=== PATIENT | male | born 1960 | race Caucasian/White ===

== ENCOUNTER 2016-09-15 17:14 | Emergency (ER) | payer BC, OTHER ==
[~2016-09-15] VITALS: Ht 177.8 cm; Wt 76.0 kg
[~2016-09-15 17:14] MED LIST: CLC100 PO; MTRUNK PO; OXYC-57 PO
[2016-09-15 17:18] VITALS: TEMP 37.2; Ht 177.8 cm; Wt 76.0 kg
[2016-09-15] MEDS ORDERED: SODIUM CHLORIDE 0.9% 500ML 500 ML IV STA (17:50)
[2016-09-15] MEDS ORDERED: KETOROLAC TROMETHAMINE 30 MG/ML VIAL IV STA (17:50)
--- NOTE | 2016-09-15 17:59 | EMERGENCY ROOM VISIT NOTE ---
History Report prepared by Michelet: Rossy Carranza Under the Supervision of: Dr. Enoc Cortes M.D. First contact with patient: 17:23 Chief Complaint: GROIN PAIN Stated Complaint: HAS HERNIA,COUGHING CAUSED MORE PAIN History of Present Illness The patient is a 56 year old male who presents to the Emergency Room with complaints of persistent right groin pain that began Friday. He currently rates his discomfort as an 8/10 in severity. The patient notes a history of three hernia repairs on his left groin, and 1 on the right. He notes a strange sensation with urination and increased right groin pain. The patient has seen his family doctor and there was concern for recurrence of a right-sided hernia, he has an appointment with surgery in a month or so. The patient describes his original pain as an achy pain, but states that now the pain radiates across his whole abdomen. The patient states that he recently developed a cough and cold, stating that his pain is worsened with coughing and movement. He states that he does heavy lifting daily. The patient notes chills and a post nasal drip with his recent cold. He additionally notes headache, diarrhea, and nausea today. The patient denies any chest pain, shortness of breath, vomiting, hematochezia, or melena. He denies any history of pneumonia. Source of History: patient Onset: Friday Position: other (right groin) Symptom Intensity: 8/10 Quality: ache, other (radiating) Timing: other (persistent) Modifying Factors (Worsening): movement, other (coughing) Associated Symptoms: + chills, + cough, + diarrhea, + headache, + nausea, No SOB, No chest pain, No hematochezia, No melena, No vomiting Note: Associated Symptoms: post nasal drip Review of Systems See HPI for pertinent positives & negatives. A total of 10 systems reviewed and were otherwise negative. Past Medical & Surgical Surgical Problems: (1) H/O hernia repair Family History Cancer Diabetes mellitus Hypertension Social History Smoking Status: Former Smoker Alcohol Use: occasionally Marital Status: Housing Status: lives with family Occupation Status: employed Current/Historical Medications Scheduled PRN Oxycodone Ir (Roxicodone Ir), 1-2 TAB PO Q4H PRN for Pain Allergies Coded Allergies: Gluten (Unverified Allergy, Unknown, unknown, 09/15/16) Physical Exam Vital Signs Date Time Temp Pulse Resp B/P Pulse Ox O2 Delivery O2 Flow Rate FiO2 09/15/16 17:18 37.2 97 18 144/101 96 Room Air Physical Exam GENERAL: Patient is in no acute distress. HEENT: No acute trauma, normocephalic atraumatic, mucous membranes moist, no nasal congestion, no scleral icterus. NECK: No stridor, no adenopathy, no meningismus, trachea is midline. LUNGS: Crackles at the left base, no wheezes, breath sounds are equal, no respiratory distress. HEART: Without murmurs gallops or rubs, regular rate and rhythm. ABDOMEN: Soft, nontender, bowel sounds positive, no hernias, no peritonitis. GROIN: Circumcised, normal testicles, nontender testicles, no hernia on the left , I cannot appreciate a hernia with straining on the right. There is a subtle fullness/firmness in the right inguinal region of unknown significance, no real tenderness. EXTREMITIES: No cyanosis or edema, full range of motion of all the joints without pain or difficulty, no signs for acute trauma. NEUROLOGIC: Oriented x 3, no acute motor or sensory deficits, no focal weakness. SKIN: No rash, no jaundice, no diaphoresis. Medical Decision & Procedures ER Provider Diagnostic Interpretation: X ray results and stated below per my interpretation and radiologist interpretation. Other radiology results and stated below per my review and radiologist interpretation: CHEST 2 VIEWS ROUTINE CLINICAL HISTORY: cough dyspnea COMPARISON STUDY: No previous studies for comparison. FINDINGS: The bones soft tissues and hemidiaphragms are normal. The cardiomediastinal silhouette is normal. The lungs are clear. The pulmonary vasculature is normal. IMPRESSION: Negative chest. Electronically signed by: Robert Thompson M.D. 09/15/2016 6:59 PM Dictated Date/Time: 09/15/2016 6:59 PM ABDOMINAL ULTRASOUND, RIGHT UPPER QUADRANT HISTORY: Right groin pain right groin--h/o previous surgery. COMPARISON: None. FINDINGS: Pre and post Valsalva evaluation over the right inguinal and groin region shows a potential very small fat-containing reducible inguinal hernia. There is no evidence of bowel containment or incarceration. IMPRESSION: Possible very small reducible fat-containing right inguinal hernia. No evidence of bowel containment or incarceration Electronically signed by: Robert Thompson M.D. 09/15/2016 7:04 PM Dictated Date/Time: 09/15/2016 7:03 PM Laboratory Results 09/15/16 18:05 Red Blood Count 5.45, Mean Corpuscular Volume 89.9, Mean Corpuscular Hemoglobin 31.7, Mean Corpuscular Hemoglobin Concent 35.3, Mean Platelet Volume 9.3, Neutrophils (%) (Auto) 66.9, Lymphocytes (%) (Auto) 13.3, Monocytes (%) (Auto) 19.0, Eosinophils (%) (Auto) 0.2, Basophils (%) (Auto) 0.2, Neutrophils # (Auto ) 3.56, Lymphocytes # (Auto) 0.71, Monocytes # (Auto) 1.01, Eosinophils # (Auto ) 0.01, Basophils # (Auto) 0.01 09/15/16 18:05 Test 09/15/16 18:05 09/15/16 20:01 White Blood Count 5.32 K/uL (4.8-10.8) Red Blood Count 5.45 M/uL (4.7-6.1) Hemoglobin 17.3 g/dL (14.0-18.0) Hematocrit 49.0 % (42-52) Mean Corpuscular Volume 89.9 fL (80-100) Mean Corpuscular Hemoglobin 31.7 pg (25-34) Mean Corpuscular Hemoglobin Concent 35.3 g/dl (32-36) Platelet Count 249 K/uL (130-400) Mean Platelet Volume 9.3 fL (7.4-10.4) Neutrophils (%) (Auto) 66.9 % Lymphocytes (%) (Auto) 13.3 % Monocytes (%) (Auto) 19.0 % Eosinophils (%) (Auto) 0.2 % Basophils (%) (Auto) 0.2 % Neutrophils # (Auto) 3.56 K/uL (1.4-6.5) Lymphocytes # (Auto) 0.71 K/uL (1.2-3.4) Monocytes # (Auto) 1.01 K/uL (0.11-0.59) Eosinophils # (Auto) 0.01 K/uL (0-0.5) Basophils # (Auto) 0.01 K/uL (0-0.2) RDW Standard Deviation 42.3 fL (36.4-46.3) RDW Coefficient of Variation 13.0 % (11.5-14.5) Immature Granulocyte % (Auto) 0.4 % Immature Granulocyte # (Auto) 0.02 K/uL (0.00-0.02) Anion Gap 10.0 mmol/L (3-11) Est Creatinine Clear Calc Drug Dose 78.3 ml/min Estimated GFR () 87.1 Estimated GFR (Non- 75.2 BUN/Creatinine Ratio 9.2 (10-20) Calcium Level 9.3 mg/dl (8.5-10.1) Urine Color YELLOW Urine Appearance CLEAR (CLEAR) Urine pH 6.0 (4.5-7.5) Urine Specific [place] 1.021 (1.000-1.030) Urine Protein NEG (NEG) Urine Glucose (UA) NEG (NEG) Urine Ketones NEG (NEG) Urine Occult Blood NEG (NEG) Urine Nitrite NEG (NEG) Urine Bilirubin NEG (NEG) Urine Urobilinogen NEG (NEG) Urine Leukocyte Esterase NEG (NEG) Laboratory results reviewed by me. Medications Administered Medications (Trade) Dose Ordered Sig/Angelia Route Start Time Stop Time Status Last Admin Dose Admin Sodium Chloride (Nss 500ml) 500 ml @ 999 mls/hr Q31M STAT IV 09/15/16 17:50 09/15/16 18:20 DC 09/15/16 18:15 999 MLS/HR Ketorolac Tromethamine (Toradol Inj) 30 mg NOW STAT IV 09/15/16 17:50 09/15/16 17:54 DC 09/15/16 18:14 30 MG Albuterol (Ventolin Hfa Inhaler) 3 puffs NOW ONCE INH 09/15/16 19:45 09/15/16 19:46 DC 09/15/16 20:19 3 PUFFS Oxycodone HCl (Roxicodone Immediate Rel 5MG Home Pack) 1 homepack UD ONCE PO 09/15/16 19:45 09/15/16 19:46 DC 09/15/16 20:18 1 HOMEPACK ED Course 1727: The patient was evaluated in room C2B. A complete history and physical exam was performed by the medical student. 174: The patient was evaluated in room C2B. A complete history and physical exam was performed. 1750: Ordered Toradol Inj 30 mg IV, Sodium Chloride 500 ml @ 999 mls/hr IV. 1920: I reevaluated the patient and he is doing well. I discussed the exam findings with him and I discussed the treatment plan. He verbalized complete understanding and agreement. He is ready to go home and follow up with Surgery. 1944: Ordered Oxycodone HCl 1 homepack PO, Albuterol 3 puffs INH. Medical Decision The patient is a 56 year old male who presents to the ED with complaints of right groin pain. Differential diagnoses considered include hernia, scar tissue , UTI, pneumonia, musculoskeletal pain, nerve impingement, bowel obstruction. There is no leukocytosis or concerning anemia. No significant electrolyte abnormality or kidney failure. Urinalysis does not show infection or hematuria. Chest does not show pneumonia or CHF. Groin ultrasound reveals a possible small fatty hernia on the right, no evidence for bowel incarceration. On my exam, I could not elicit any large hernia with straining. The patient does likely have a small fat-containing hernia on the right that has been giving him some trouble. Now, with his cough, he has increased pain in the right groin area. The patient will be wearing a truss, wearing more supportive jockey type underwear. He will be using [id number] pain medication, ice to the area, he will avoid heavy lifting. I will prescribe albuterol for the bronchospasm and cough. He was written for some oxycodone for severe pain. The patient will follow with surgery as an outpatient. He can return here for worsening symptoms. He will call surgery tomorrow. During the patient's ER stay, he received IV Toradol for pain, IV saline for hydration, he seems comfortable. [place] Drug Monitoring Program Search Results: patient reviewed within database, no issues identified Impression Primary Impression: Right groin pain Additional Impressions: Inguinal hernia Cough Scribe Attestation The scribe's documentation has been prepared under my direction and personally reviewed by me in its entirety. I confirm that the note above accurately reflects all work, treatment, procedures, and medical decision making performed by me. Departure Information Dispostion Home / Self-Care Prescriptions Oxycodone Ir (Roxicodone Ir) 5 Mg Tab 1-2 TAB PO Q4H Y for Pain, #15 TAB Prov: Enoc Cortes M.D. 09/15/16 Referrals Anahi Angel (PCP) Forms HOME CARE DOCUMENTATION FORM, IMPORTANT VISIT INFORMATION, WORK / SCHOOL INSTRUCTIONS Patient Instructions My [facility] Additional Instructions ice to the area wear the truss and jockey underwear avoid heavy lifting at work as we discussed motrin or tylenol for mild pain oxy ir 1-2 tab every 4 hours for severe pain call tomorrow to set up surgery appt albuterol 3 puffs every 4 hours to help the cough return for worsening pain, vomiting Problem Qualifiers
[2016-09-15 18:24] LABS: BASO % 0.2 %; BASO ABS # 0.01 K/uL (0-0.2); COMPLETE YES; EOS % 0.2 %; IG% 0.4 %; LYMPH % 13.3 %; LYMPH ABS # 0.71 K/uL (1.2-3.4); MEAN CELL VOLUME 89.9 fL (80-100); MEAN CORPUSCULAR HEMOGLOBIN 31.7 pg (25-34); MEAN CORPUSCULAR HGB CONC 35.3 g/dl (32-36); MEAN PLATELET VOLUME 9.3 fL (7.4-10.4); NEUT % 66.9 %; PLATELET COUNT 249 K/uL (130-400); RED BLOOD COUNT 5.45 M/uL (4.7-6.1); WHITE BLOOD COUNT 5.32 K/uL (4.8-10.8)
[2016-09-15 18:34] LABS: BUN/CREATININE RATIO 9.2 (10-20); CALCIUM 9.3 mg/dl (8.5-10.1); CREATININE 1.1 mg/dl (0.60-1.40); POTASSIUM 4.1 mmol/L (3.5-5.1)
--- NOTE | 2016-09-15 19:00 | DIAGNOSTIC IMAGING REPORT ---
CHEST 2 VIEWS ROUTINE CLINICAL HISTORY: cough dyspnea COMPARISON STUDY: No previous studies for comparison. FINDINGS: The bones soft tissues and hemidiaphragms are normal. The cardiomediastinal silhouette is normal. The lungs are clear. The pulmonary vasculature is normal. IMPRESSION: Negative chest. Electronically signed by: Robert Thompson M.D. 09/15/2016 6:59 PM Dictated Date/Time: 09/15/2016 6:59 PM
--- NOTE | 2016-09-15 19:06 | DIAGNOSTIC IMAGING REPORT ---
ABDOMINAL ULTRASOUND, RIGHT UPPER QUADRANT HISTORY: Right groin pain right groin--h/o previous surgery. COMPARISON: None. FINDINGS: Pre and post Valsalva evaluation over the right inguinal and groin region shows a potential very small fat-containing reducible inguinal hernia. There is no evidence of bowel containment or incarceration. IMPRESSION: Possible very small reducible fat-containing right inguinal hernia. No evidence of bowel containment or incarceration Electronically signed by: Robert Thompson M.D. 09/15/2016 7:04 PM Dictated Date/Time: 09/15/2016 7:03 PM
[2016-09-15] MEDS ORDERED: OXYC1TAB3 PO (19:39)
[2016-09-15] MEDS ORDERED: OXYCODONE IR HOME PACK PO ONE (19:45)
[2016-09-15] MEDS ORDERED: ALBUTEROL HFA 8 GM INHALER INH ONE (19:45)
[2016-09-15 20:17] LABS: URINE APPEARANCE CLEAR (CLEAR); URINE BILIRUBIN NEG (NEG); URINE COLOR YELLOW; URINE NITRITE NEG (NEG); URINE SPECIFIC GRAVITY 1.021 (1.000-1.030); UROBILINOGEN NEG (NEG)
[2016-09-15 20:20] LABS: MANUAL MICROSCOPIC REQUIRED? NO; REVIEW REQ? NO
[2016-09-15 20:22] VITALS: BP 128/70; PULSE 78; O2SAT 97
[2016-09-27] MEDS ORDERED: OXYC-57 PO (09:12)
== END 2016-09-15 20:22 | disposition home or self-care (01) ==
LOC: C.EDB 17:16 → C.EDC 20:22
DX: R10.31 Right lower quadrant pain (principal); K40.90 Unilateral inguinal hernia, without obstruction or gangrene, not specified as recurrent; R05 Cough; R51 Headache; R19.7 Diarrhea, unspecified; R11.0 Nausea; R09.82 Postnasal drip; Z87.19 Personal history of other diseases of the digestive system; Z87.891 Personal history of nicotine dependence; Z82.49 Family history of ischemic heart disease and other diseases of the circulatory system; Z83.3 Family history of diabetes mellitus

== ENCOUNTER → 2016-09-23 | Outpatient (CLI) | payer OTHER ==
[~2016-09-23] MED LIST changes: -CLC100 PO; -MTRUNK PO; +OXYC1TAB3 PO
== END | disposition home or self-care (01) ==
LOC: C.CPL 16:26
PROVIDERS: ATTEND Surgery
DX: K40.91 Unilateral inguinal hernia, without obstruction or gangrene, recurrent (principal)

== ENCOUNTER → 2016-09-27 | Day surgery (SDC) | payer OTHER ==
[2016-09-26 08:35] VITALS: Ht 177.8 cm; Wt 75.0 kg
[~2016-09-27] VITALS: Ht 177.8 cm; Wt 75.0 kg
[~2016-09-27] MED LIST changes: +ATROPINE SULFATE 0.1 MG/ML 5ML SYR IV PRN; +BACITRACIN 50000 UNIT VIAL ONE; +BUPIVACAINE 0.5 % 5 MG/1 ML MPF 30ML VIAL ONE; +CEFAZOLIN SOD 1 GM VIAL ONE; +CEFAZOLIN SOD 1000MG/55 ML D5W IV ONE; +DEXAMETHASONE SOD INJ 4 MG/ML VIAL ONE; +EpHEDrine SULFATE INJ 50 MG/ML AMP IV PRN; +FENTANYL CITRATE INJ 50 MCG/1 ML 2 ML VIAL ONE; +FLUMAZENIL 0.1 MG/1 ML 10 ML VIAL IV PRN; +HYDROmorphone INJ 1 MG/ML SYR IV PRN; +KETOROLAC TROMETHAMINE 30 MG/ML VIAL IV. PRN; +LACTATED RINGER'S 1000ML 1,000 ML IV SCH; +LIDOCAINE HCL 2% 2 ML VIAL (20MG/ML) ONE; +MIDAZOLAM HCL 1 MG/ML 2ML VIAL ONE; +NALOXONE HCL 0.4 MG/1 ML VIAL/CARP IV PRN; +ONDANSETRON INJ 2 MG/ML 2 ML VIAL IV PRN; +ONDANSETRON INJ 2 MG/ML 2 ML VIAL ONE; -OXYC1TAB3 PO; +OXYCODONE/ACETAMINOPHEN 5-325 TAB PO PRN; +PROMETHAZINE HCL INJ 12.5 MG in SODIUM CHLORIDE 0.9% 50ML 50 ML IV PRN; +PROPOFOL IV EMULSION 10 MG/ML 20 ML VIAL IV ONE; +SODIUM CHLORIDE 0.9% 1000ML 1,000 ML IV SCH; +SODIUM CHLORIDE 0.9% INJ 10 ML VIAL ONE
--- NOTE | 2016-09-27 07:05 | History & Physical Bridge Note ---
H&P Re-Evaluation Bridge Note: I have examined the patient, reviewed the History & Physical and in the interval since the performance of the History & Physical I have noted the following changes of clinical significance: No changes noted pt marked bedside
--- NOTE | 2016-09-27 09:40 | Medical Student: [facility] ---
Immediate Operative Summary Operative Date Sep 27, 2016. Pre-Operative Diagnosis right recurrent inguinal hernia Post-Operative Diagnosis same Procedure(s) Performed open right inguinal hernia repair w [id number] mesh Surgeon Dr. Veloz Mud Car Worker Surgeon(s) Ailyn Keith PA-C Estimated Blood Loss 5cc Findings right direct inguinal hernia w defect near symphysis pubis Specimens A. right groin lipoma B. right inguinal nerve Anesthesia general Complication(s) None Disposition Recovery Room / PACU
--- NOTE | 2016-09-27 09:41 | [facility] Post Operative Brief Note ---
Immediate Operative Summary Operative Date Sep 27, 2016. Pre-Operative Diagnosis Recurrent Right Inguinal Hernia Post-Operative Diagnosis Same and Direct Hernia Procedure(s) Performed Right Recurrent, Direct, Inguinal Open Hernia Repair, With Marlex Mesh Patch and Plug Surgeon Dr. Veloz Brine Tank Tender Surgeon(s) Keila Keith PA-C Estimated Blood Loss 5 ml Findings rec defect tricia 1 cm at symphysis pubis Specimens A. Right Groin Lipoma B. Right Inguinal Nerve Anesthesia 1%xyl (8cc)
--- NOTE | 2016-09-27 09:41 | Discharge Instructions ---
Discharge Instructions Date of Service Sep 27, 2016. Admission Reason for Admission: Recurrent Right Inguinal Hernia Discharge Discharge Diagnosis / Problem: Recurrent Right Inguinal Hernia Discharge Goals Goal(s): Decrease discomfort, Improve function Activity Recommendations Activity Limitations: as noted below Lifting Limitations: no more than 10 pounds Exercise/Sports Limitations: until after follow-up appointment May Resume Sexual Activity: after follow-up appointment Shower/Bathe: tomorrow Driving or Machine Use: resume 3 days after discharge . Instructions / Follow-Up Instructions / Follow-Up Please follow-up in the office for staple removal in one week. Please call [phone] to schedule an appointment. Current Hospital Diet Patient's current hospital diet: Discharge Diet Recommended Diet: Regular Diet Procedures Procedures Performed: Right Recurrent, Direct, Inguinal Open Hernia Repair, With Marlex Mesh Patch and Plug Pending Studies Studies pending at discharge: no Medical Emergencies . Who to Call and When: Medical Emergencies: If at any time you feel your situation is an emergency, please call 911 immediately. . Non-Emergent Contact Non-Emergency issues call your: Primary Care Provider, Surgeon Call Non-Emergent contact if: temperature is above 101, your pain is not controlled, wound has increased drainage, wound has increased redness . "Provider Documentation" section prepared by Ailyn Keith. VTE Core Measure Inpt VTE Proph given/why not?: Unfractionated heparin SQ, SCD's
--- NOTE | 2016-09-27 09:44 | OPERATIVE REPORT ---
DATE OF OPERATION: 09/27/2016 PREOPERATIVE DIAGNOSIS: Recurrent right inguinal hernia. POSTOPERATIVE DIAGNOSIS: Recurrent right direct inguinal hernia. PROCEDURE: Repair right direct inguinal hernia with Marlex patch and plug. SURGEON: Dr. Veloz. CORPORATE TRUST OFFICER: Ailyn Keith PA-C. OPERATION AND FINDINGS: SUMMARY: The patient was brought into the operating room theater. Right lower quadrant prepped with Betadine scrubbing solution and properly draped. 1% Xylocaine without epinephrine was used to infiltrate preemptively 2 fingerbreadths medial anterior superior iliac crest after general anesthetic. Further local was used along the incision. We used through the old scar, deepened through subcutaneous tissue. We were met with significant amount of scar tissue. An initial dissection down what appeared to be the external oblique fascia. There was some large vessels which turned out to be that we probably going down towards the inferior aspect of the shelving portion. Since there was a lymph node in that area we resected it also. We then took dissection finally more laterally, identified the external oblique, opened it along the course of its fibers, but there was significant amount of scar tissue and the even the cord structure was strictly adherent underneath it. Of note, the vas appeared to be larger than normal as were some venous plexus. We gingerly dissected out all the way down to the external ring. We basically identified that the patient had a direct recurrence right at the symphysis pubis. After dissection this mushroom fatty tissue coming through an opening about 1 cm, we were able then to return everything preperitoneally. This was the only defect. Also of note around the external ring and superiorly there seemed to be a fiber that may have been entrapped nerve. I did sacrifice it and sent a piece for pathology. We then elected to use a patch and plug technique, we took a small piece of Marlex, made 2 circular rings, 1 larger about 2.5 cm, the other one about 1.5 cm. Lower one was attached to the central portion of the upper one and we used that as a plug and then the patch on the larger sheath was used interrupted 2-[address] the mesh at pivot points around the defect in the direct area. We tied that down. The area appeared quite satisfactory for repair. We then used more local in the wound. Hemostasis was satisfactory. Closed the scar tissue mostly maybe in part of the external oblique over the cord with interrupted 3-0 silk suture and then we used chromic to approximate the subcutaneous tissue and possibly part of the external oblique on top of the cord. Erin were used for skin edges. Dressing was applied. The procedure was tolerated well by the patient. Estimated blood loss approximately 5 mL. The patient was taken to recovery room in good condition. I attest to the content of the Intraoperative Record and any orders documented therein. Any exceptio ns are noted below.
[2016-09-27 09:53] VITALS: TEMP 36.7
--- NOTE | 2016-09-27 10:02 | Anesthesia Progress Nt - [facility] ---
Anesthesia Post Op Note Date & Time Sep 27, 2016 at 10:02 Vital Signs Pain Intensity: 2 Vital Signs Past 12 Hours Date Time Temp Pulse Resp B/P Pulse Ox O2 Delivery O2 Flow Rate FiO2 09/27/16 09:53 36.7 63 20 112/75 97 Room Air 09/27/16 09:46 117/80 09/27/16 09:43 67 20 09/27/16 09:43 68 20 96 09/27/16 09:42 36.7 67 16 114/74 96 Room Air 09/27/16 09:42 64 19 09/27/16 09:42 63 19 96 09/27/16 09:41 114/74 09/27/16 09:37 64 18 100 09/27/16 09:37 63 18 09/27/16 09:36 105/74 09/27/16 09:32 64 15 99 09/27/16 09:32 64 15 09/27/16 09:31 105/73 09/27/16 09:27 66 18 09/27/16 09:27 66 18 98 09/27/16 09:26 105/70 09/27/16 09:22 62 17 09/27/16 09:22 62 17 99 09/27/16 09:21 102/68 09/27/16 09:17 63 18 09/27/16 09:17 64 18 98 09/27/16 09:16 102/68 09/27/16 09:12 60 19 97 09/27/16 09:12 62 19 09/27/16 09:11 97/66 09/27/16 09:08 59 17 98 09/27/16 09:08 59 17 09/27/16 09:06 105/73 09/27/16 09:04 106/76 09/27/16 09:03 36.9 61 16 106/76 98 Diffusion Mask 6 09/27/16 06:51 36.6 73 16 116/82 96 Room Air Notes Mental Status: alert / awake / arousable, participated in evaluation Pt Amnestic to Procedure: Yes Nausea / Vomiting: adequately controlled Pain: adequately controlled Airway Patency, RR, SpO2: stable & adequate BP & HR: stable & adequate Hydration State: stable & adequate Anesthetic Complications: no major complications apparent
[2016-09-27 10:16] VITALS: BP 121/79; PULSE 66; O2SAT 95
== END | disposition home or self-care (01) ==
LOC: X.SURG 06:38
PROVIDERS: ATTEND Surgery
DX: K40.91 Unilateral inguinal hernia, without obstruction or gangrene, recurrent (principal); Z83.3 Family history of diabetes mellitus; Z82.49 Family history of ischemic heart disease and other diseases of the circulatory system